=== PATIENT | female | born 1945 | race Caucasian/White ===

== ENCOUNTER → 2021-10-27 | Outpatient (CLI) | payer MEDICARE, OTHER ==
[~2021-10-27] MED LIST: BONE DENSITY C1 EACH PO; BUTASPCAF PO; METO25ER PO; MINO100 PO; Multiple Vitam1 EAC1 PO
== END | disposition home or self-care (01) ==
LOC: LAB SHORT 15:22 → LAB 15:22
DX: N39.0 Urinary tract infection, site not specified (principal)
CPT/HCPCS: 87077; 87086; 87186

== ENCOUNTER → 2023-04-17 | Outpatient (CLI) | payer MEDICARE, OTHER ==
[2023-04-17 14:13] LABS: Stool Occult Bld Immuno 1 Negative (NEGATIVE)
== END ==
LOC: LAB 09:04 → LAB SHORT 09:04
PROVIDERS: Family Medicine
DX: Z12.11 Encounter for screening for malignant neoplasm of colon (principal)
CPT/HCPCS: G0328

== ENCOUNTER → 2023-08-15 | Outpatient (CLI) | payer MEDICARE, OTHER | END | disposition home or self-care (01) | LOC: LAB 19:00 → LAB SHORT 19:00 | DX: R35.0 Frequency of micturition (principal); R53.83 Other fatigue; R05.9 Cough, unspecified | CPT/HCPCS: 87086 ==

== ENCOUNTER → 2024-04-01 | Outpatient (CLI) | payer MEDICARE, OTHER | LOC: LAB SHORT 15:10 → LAB 15:10 | DX: N39.0 Urinary tract infection, site not specified (principal) | CPT/HCPCS: 87077; 87086; 87186 ==

== ENCOUNTER 2025-01-05 09:25 | Day surgery (SDC) | payer MEDICARE, OTHER ==
[~2025-01-05] VITALS: Ht 162.6 cm; Wt 85.4 kg
[~2025-01-05 09:25] MED LIST changes: +Balanced Salt Epinephrine Irrigation Solution 500 mL IR SCH; +Moxifloxacin HCL 0.5 MG/0.1 ML 0.4MLSYR RIGHTEYE SCH; +Ondansetron 4 MG SoluTab MM PRN; +PHENYLEPHRINE\\TROPICAMIDE\\TETRACAINE OPHTHALMIC DILATING SOLN RIGHTEYE PRN; +Povidone-Iodine 450 DROP/30 ML Solution ONE; +Povidone-Iodine 450 DROP/30 ML Solution RIGHTEYE SCH; +Tetracaine HCl/Pf 0.5% Opth Soln 4 ml ONE; +Triamcinolone Inj Susp 40 MG / ML 1ML Vial INJ SCH; +Triamcinolone Inj Susp 40 MG / ML 1ML Vial ONE; +diazePAM 2 MG,diazePAM 5 MG PO SCH
[2025-01-05] MEDS ORDERED: EUTHYROX50 MC1 PO (10:25)
[2025-01-05] MEDS ORDERED: METOPROLOL-HCT1 EACH PO (10:25)
--- NOTE | 2025-01-05 10:34 | NUR ---
01/05/25 1034 Kary Remy PT STATES ANXIETY LEVEL PRIOR TO VALIUM 7MG WAS 3/10. VALIUM ADMINISTERED AT 1021. PULSE OXIMETRY IN PLACE WITH SPO2 SHOWING 100% ON RA. TETRACAINE IN AT 1022 PLEDGETT IN AT 1023 PT TOLERATED WELL. CALL LIGHT IN REACH.
--- NOTE | 2025-01-05 11:07 | NUR ---
01/05/25 1107 Jennifer Bergeron VITALS AT 1105 BP: 137/81 P:66 O2: 99% WITH 10 LITERS OF BLOW BY OXYGEN
[2025-01-05 11:26] VITALS: BP 134/76
--- NOTE | 2025-01-05 11:34 | NUR ---
01/05/25 Camila Rust PT HAS DRIVERS LICENSE, AND INSURANCE CARDS IN FOLDER.
== END 2025-01-05 11:54 | disposition home or self-care (01) ==
LOC: ORSCSDS 09:25
PROVIDERS: Ophthalmology
PROC: 08RJ3JZ Replacement of Right Lens with Synthetic Substitute, Percutaneous Approach (ICD-10-PCS; principal; 2025-01-05 11:30)
DX: H25.811 Combined forms of age-related cataract, right eye (principal); H52.201 Unspecified astigmatism, right eye; I10 Essential (primary) hypertension; E07.9 Disorder of thyroid, unspecified; Z79.899 Other long term (current) drug therapy
CPT/HCPCS: A9270; J3301; V2632

== ENCOUNTER 2025-01-12 07:48 | Day surgery (SDC) | payer MEDICARE, OTHER ==
[~2025-01-12] VITALS: Ht 162.6 cm; Wt 85.9 kg
[~2025-01-12 07:48] MED LIST changes: +EUTHYROX50 MC1 PO; +METOPROLOL-HCT1 EACH PO; +Moxifloxacin HCL 0.5 MG/0.1 ML 0.4MLSYR LEFTEYE SCH; -Moxifloxacin HCL 0.5 MG/0.1 ML 0.4MLSYR RIGHTEYE SCH; +PHENYLEPHRINE\\TROPICAMIDE\\TETRACAINE OPHTHALMIC DILATING SOLN LEFTEYE PRN; -PHENYLEPHRINE\\TROPICAMIDE\\TETRACAINE OPHTHALMIC DILATING SOLN RIGHTEYE PRN; +Povidone-Iodine 450 DROP/30 ML Solution LEFTEYE SCH; -Povidone-Iodine 450 DROP/30 ML Solution RIGHTEYE SCH
--- NOTE | 2025-01-12 08:17 | NUR ---
01/12/25 0817 Marine Puente PT STATES ANXIETY LEVEL IS 0/10 IN PREOP PT HAS CONTINUOUS PULSE OX MONITORING IN PLACE. CALL LIGHT IN HAND
[2025-01-12] MEDS ORDERED: Tetracaine HCl 0.5% Opth Soln 15 ml LEFTEYE ONE (08:36)
--- NOTE | 2025-01-12 08:39 | NUR ---
01/12/25 0839 Bhavna Blackburn N 114/61 100% ON 10L BLOW BY O2 63 18
[2025-01-12 09:00] VITALS: BP 136/65
== END 2025-01-12 09:09 | disposition home or self-care (01) ==
LOC: ORSCSDS 07:48
PROVIDERS: Ophthalmology
PROC: 08RK3JZ Replacement of Left Lens with Synthetic Substitute, Percutaneous Approach (ICD-10-PCS; principal; 2025-01-12 09:00)
DX: H25.812 Combined forms of age-related cataract, left eye (principal); Z96.1 Presence of intraocular lens; I10 Essential (primary) hypertension; E07.9 Disorder of thyroid, unspecified; Z79.899 Other long term (current) drug therapy
CPT/HCPCS: A9270; J2003; J3301; V2632